=== PATIENT | male | born 1980 | race African-American/Black ===

== ENCOUNTER → 2020-07-28 | Outpatient (CLI) | payer OTHER ==
--- NOTE | 2020-07-28 12:04 | REP ---
INDICATION: HTN, EVAL FOR RUMA; HYPERTENSIVE HEART DX FILE ROOM. COMPARISON: None. TECHNIQUE: Real-time sonographic evaluation of the kidneys is performed. Duplex Doppler evaluation of renal arteries performed bilaterally. FINDINGS: Renal cortical echogenicity pattern is normal bilaterally and contours are smooth. There is no evidence of hydronephrosis, cyst, mass, or calculus in either kidney. The right kidney measures 12.2 x 6.7 x 6.2 cm. Left renal dimensions are 13.4 x 6.0 x 7.0 cm. The urinary bladder is empty. The abdominal aorta at the level of the renal arteries could not be visualized due to overlying bowel gas, nor could the proximal main renal arteries bilaterally. The visualized main right renal artery demonstrates peak systolic velocity in the mid aspect 115 centimeters/second. The distal main left renal artery demonstrates peak systolic velocity 72 centimeters/second. Intrarenal waveforms on the right are within normal limits, with resistive indices 0.59-0.61 and acceleration times ranging between 0.034 and 0.053. Left mid intrarenal artery waveform is abnormal and acceleration times are somewhat elevated. Resistive indices of the left kidney range 0.53-0.57, acceleration times range between 0.058 and 0.142. IMPRESSION: Limited exam due to bowel gas, obscuring the proximal main renal arteries bilaterally. Normal intrarenal waveforms on the right do not suggest significant renal artery stenosis. However abnormal intrarenal waveforms on the left could indicate some degree of stenosis. Consider CT or MR angiography. <Electronically signed by Florencio Daugherty > 07/28/20 [id number]
== END ==
LOC: M RAD 07:20
PROVIDERS: ATTEND Internal Medicine Cardiovascular Disease
DX: I11.9 Hypertensive heart disease without heart failure (principal)

== ENCOUNTER → 2020-08-15 | Outpatient (CLI) | payer OTHER ==
--- NOTE | 2020-08-18 17:38 | REP ---
INDICATION: HYPERTENSIVE HEART DISEASE. COMPARISON: None. TECHNIQUE: Standard noncontrast MRA of the abdomen sequencing. FINDINGS: Right kidney demonstrates 2 renal arteries each having their own origin and without evidence for significant atherosclerotic changes, obvious stenosis or occlusion. Left kidney appears to have a single renal arterial trunk originating from the aorta which almost immediately branches to two separate normal appearing left renal arteries without evidence for significant atherosclerotic changes, obvious stenosis or occlusion. The kidneys themselves are grossly unremarkable based on T2 weighted images. IMPRESSION: Essentially normal appearing bilateral renal arteries by noncontrast MRA evaluation. <Electronically signed by Edmund Preciado > 08/18/20 [id number]
== END ==
LOC: M RAD 15:05
PROVIDERS: ATTEND Physician Assistant
DX: I11.9 Hypertensive heart disease without heart failure (principal)